=== PATIENT | female | born 1975 ===

== ENCOUNTER 2016-07-30 15:38 | Emergency (ER) | payer OTHER ==
[2016-07-30 15:43] VITALS: BMI 24.8
[2016-07-30 15:44] VITALS: TEMP 97.7
--- NOTE | 2016-07-30 16:30 | C.PDOC ---
History Of Present Illness 40 y/o female c/o tightness right posterior neck for 2 days. Patient states she developed gradual onset of a generalized headache today. Patient states she also felt some associated nausea. She has had mild nasal c ongestion and now has pressure type pain in her upper teeth. Denies fever, chills, recent illness , visual disturbances, or other associated symptoms. She took Sara-seltzer for the nausea but nothing for the headache. Patient states that she has a history of seizure disorder with her last seizure 9 years ago. She ran out of her seizure medication 3 days ago. Time Seen by Provider: 07/30/16 15:59 Chief Complaint (Nursing): Seizure History Per: Patient History/Exam Limitations: no limitations Onset/Duration Of Symptoms: Days (2) Current Symptoms Are (Timing): Still Present Recent travel outside of the [place]: No Past Medical History Reviewed: Historical Data, Nursing Documentation, Vital Signs Vital Signs: Last Vital Signs Temp 97.7 F 07/30/16 15:43 Pulse 74 07/30/16 15:43 Resp 18 07/30/16 15:43 BP 130/75 07/30/16 15:43 Pulse Ox 98 07/30/16 16:30 - Medical History PMH: Seizures Family History: States: Unknown Family Hx - Social History Hx Alcohol Use: No Hx Substance Use: No - Immunization History Hx Tetanus Toxoid Vaccination: Yes Hx Influenza Vaccination: Yes Hx Pneumococcal Vaccination: Yes Review Of Systems Except As Marked, All Systems Reviewed And Found Negative. Constitutional: Negative for: Fever, Chills Cardiovascular: Negative for: Chest Pain Respiratory: Negative for: Cough Gastrointestinal: Positive for: Nausea. Negative for: Vomiting Musculoskeletal: Positive for: Neck Pain Skin: Negative for: Rash Neurological: Positive for: Headache. Negative for: Weakness, Numbness Physical Exam - Physical Exam Appears: Non-toxic, No Acute Distress Skin: Normal Color, Warm, Dry Head: Atraumatic, Normacephalic Eye(s): bilateral: Normal Inspection, PERRL, EOMI Ear(s): Bilateral: Normal Nose: Other (Moderate congestion with bilateral maxillary sinus tenderness) Oral Mucosa: Moist Neck: Normal ROM, No Midline Cervical Tenderness, No Paracervical Tenderness, No Step Off Deformity, Supple Chest: Symmetrical Cardiovascular: Rhythm Regular Respiratory: Normal Breath Sounds, No Rales, No Rhonchi, No Wheezing Gastrointestinal/Abdominal: Soft, No Tenderness, No Guarding, No Rebound Back: Normal Inspection, No Vertebral Tenderness, No Paraspinal Tenderness Extremity: Normal ROM, Capillary Refill (< 2 sec. ) Neurological/Psych: Oriented x3, Normal Speech, Normal Cognition ED Course And Treatment - Laboratory Results Result Diagrams: 07/30/16 16:47 07/30/16 16:47 Lab Interpretation: Abnormal (Mild elevation of WBC with elevated eosinophils.) O2 Sat by Pulse Oximetry: 98 (RA) Pulse Ox Interpretation: Normal Progress Note: Treated with Flexeril, Toradol, and IVFs. Labs ordered and reviewed. Reevaluation Time: 17:42 Reassessment Condition: Improved (Feels better after IV Toradol and PO Flexeril) Disposition Counseled Patient/Family Regarding: Studies Performed, Diagnosis, Need For Followup, Rx Given - Disposition Referrals: [facility] [Outside] Disposition: HOME/ ROUTINE Disposition Time: 17:49 Condition: IMPROVED Prescriptions: Amoxicillin 875 mg PO BID #20 tablet Fluticasone Furoate [Flonase Sensimist] 15.8 ml NS DAILY #1 spray.susp Phenytoin, Extended [Dilantin] 100 mg PO TID #90 cer Instructions: Sinusitis (ED), Epilepsy (ED) Print Language: SAMI - Clinical Impression Clinical Impression: Seizure disorder, Sinusitis - Venkatibe Statement The provider has reviewed the documentation as recorded by the Jose Eduardo Rose Provider Attestation: All medical record entries made by the Jose Eduardo were at my direction and personally dictated by me. I have reviewed the chart and agree that the record accurately reflects my personal performance of the history, physical exam, medical decision making, and the department course for this patient. I have also personally directed, reviewed, and agree with the discharge instructions and disposition.
[2016-07-30 16:50] LABS: BASO # 0.1 K/uL (0.0-0.2); BASO % 0.7 % (0.0-2.0); EOS # 1.2 K/uL (0.0-0.7); HEMATOCRIT 43.7 % (34.0-47.0); LYMPH # 2.9 K/uL (1.0-4.3); LYMPH % 23.7 % (20.0-40.0); MEAN CELL VOLUME 86.6 fL (81.0-99.0); MEAN CORPUSCULAR HGB CONC 33.5 g/dL (33.0-37.0); MEAN PLATELET VOLUME 8.4 fL (7.2-11.7); MONO # 0.8 K/uL (0.0-0.8); MONO % 6.4 % (0.0-10.0); NRBC % 0.1 % (0.0-2.0); RED CELL DISTRIBUTION WIDTH 13.6 % (11.5-14.5); WHITE BLOOD COUNT 12.1 K/uL (4.8-10.8)
[2016-07-30 16:58] LABS: CHLORIDE 100 mmol/L (98-107); SODIUM 138 mmol/L (132-148)
[2016-07-30 17:00] LABS: GFR AFRICAN-AMERICAN > 60
[2016-07-30 17:01] LABS: ALB/GLOB RATIO 1.2 (1.0-2.1); ALKALINE PHOSPHATASE 57 U/L (38-126); ALT/SGPT 27 U/L (9-52); AST/SGOT 35 U/L (14-36); BLOOD UREA NITROGEN 10 mg/dL (7-17); CARBON DIOXIDE 25 mmol/L (22-30); GLUCOSE,RANDOM 98 mg/dL (65-105)
[2016-07-30 17:02] LABS: CALCIUM 8.3 mg/dl (8.6-10.4)
[2016-07-30 17:07] LABS: POTASSIUM 4.4 mmol/L (3.6-5.2)
[2016-07-30 17:09] LABS: RBC URINE < 1 /hpf (0-3); URINE BACTERIA RARE (<OCC); URINE BILIRUBIN NEGATIVE (NEGATIVE); URINE BLOOD NEGATIVE (NEGATIVE); URINE COLOR Colorless (YELLOW); URINE GLUCOSE (UA) NORMAL (Normal); URINE KETONE NEGATIVE (NEGATIVE); URINE PROTEIN NEGATIVE (NEGATIVE); URINE UROBILINOGEN NORMAL mg/dL (0.2-1.0); WBC URINE 1 /hpf (0-5)
[2016-07-30 17:14] LABS: URINE LEUKOCYTE ESTERASE NEGATIVE Leu/uL (Negative)
[2016-07-30 19:07] VITALS: BP 135/81; PULSE 80; RESP 20; O2SAT 100
== END 2016-07-30 19:06 | disposition home or self-care (01) ==
LOC: C.ER 15:38
DX: G40.909 Epilepsy, unspecified, not intractable, without status epilepticus (principal); J32.9 Chronic sinusitis, unspecified
CPT/HCPCS: 80053; 81001; 85025; 96374; 99285; J1885

== ENCOUNTER 2017-04-16 15:26 | Emergency (ER) | payer OTHER ==
[2017-04-16 15:26] VITALS: BMI 34.5
[2017-04-16 15:36] VITALS: RESP 18; TEMP 98
--- NOTE | 2017-04-16 16:13 | C.PDOC ---
History Of Present Illness 41 year old female sent to the ER by the clinic for a complaint of an intermittent left sided headache for the past 3 days, associated with photophobia and nausea. Patient denies vomiting, fever, or change in vision. Time Seen by Provider: 04/16/17 15:53 Chief Complaint (Nursing): Headache History Per: Patient History/Exam Limitations: no limitations Onset/Duration Of Symptoms: Days, Intermittent Episodes Current Symptoms Are (Timing): Still Present Preceeding Symptoms: None Associated Symptoms: Photophobia, Nausea. denies: Blurred Vision, Vomiting, Extremity Weakness Recent travel outside of the [place]: No Past Medical History Reviewed: Historical Data, Nursing Documentation, Vital Signs Vital Signs: Last Vital Signs Temp 98.0 F 04/16/17 15:31 Pulse 72 04/16/17 15:31 Resp 18 04/16/17 15:31 BP 124/75 04/16/17 15:31 Pulse Ox 99 04/16/17 16:18 - Medical History PMH: Seizures Family History: States: Unknown Family Hx - Social History Hx Alcohol Use: No Hx Substance Use: No - Immunization History Hx Tetanus Toxoid Vaccination: Yes Hx Influenza Vaccination: Yes Hx Pneumococcal Vaccination: Yes Review Of Systems Except As Marked, All Systems Reviewed And Found Negative. Constitutional: Negative for: Fever, Chills Gastrointestinal: Positive for: Nausea. Negative for: Vomiting Neurological: Positive for: Headache, Other (Photophobia) Physical Exam - Physical Exam Additional Physical Exam Comments: Constitutional: No acute distress. Head: Normocephalic. Atraumatic. Eyes: PERRL. ENT: Moist mucous membranes. Neck: Supple. Cardiovascular: Regular rate. Radial pulse 2+ bilaterally. Chest: No tenderness. Respiratory: Clear to auscultation bilaterally. GI: Soft. Nontender. Nondistended. Back: No CVA tenderness. Musculoskeletal: No tenderness or swelling of extremities. Skin: No rash. Neurologic: Alert, no focal deficit. CN II to XII intact. Motor 5/5 x 4. Sensation to light touch intact bilaterally. Gait normal. ED Course And Treatment O2 Sat by Pulse Oximetry: 99 Medical Decision Making Medical Decision Making: IMPRESSION: No acute intracranial pathology identified. Disposition - Disposition Referrals: [facility] [Outside] Disposition: HOME/ ROUTINE Disposition Time: 16:54 Condition: STABLE Prescriptions: Ibuprofen [Motrin] 600 mg PO Q6 #25 tab Metoclopramide [Reglan] 10 mg PO Q8H #12 tab Instructions: Headache, Adult (DC) Forms: [facility] (Setswana), Gen Discharge Inst Mohawk Print Language: [place] LEONEAN - Clinical Impression Clinical Impression: Headache - Scribe Statement The provider has reviewed the documentation as recorded by the Scribe Desmond Cruz All medical record entries made by the Venkatibe were at my direction and personally dictated by me. I have reviewed the chart and agree that the record accurately reflects my personal performance of the history, physical exam, medical decision making, and the department course for this patient. I have also personally directed, reviewed, and agree with the discharge instructions and disposition.
--- NOTE | 2017-04-16 16:52 | CT ---
PROCEDURE: CT HEAD WITHOUT CONTRAST. HISTORY: headache COMPARISON: Brain MRI without contrast performed 04/07/17 TECHNIQUE: Axial computed tomography images were obtained through the head/brain without intravenous contrast. Radiation dose: Total exam DLP = 801.12 mGy-cm. This CT exam was performed using one or more of the following dose reduction techniques: Automated exposure control, adjustment of the mA and/or kV according to patient size, and/or use of iterative reconstruction technique. FINDINGS: HEMORRHAGE: No intracranial hemorrhage. BRAIN: No mass effect or edema. The wellington-white matter differentiation appears intact. Please note that MRI with diffusion imaging is more sensitive in the detection of acute ischemic event. Low lying cerebellar tonsils. VENTRICLES: No hydrocephalus. CALVARIUM: Unremarkable. PARANASAL SINUSES: Unremarkable as visualized. No significant inflammatory changes. MASTOID AIR CELLS: Unremarkable as visualized. No inflammatory changes. OTHER FINDINGS: None. IMPRESSION: No acute intracranial pathology identified. Low-lying cerebellar tonsils.
[2017-04-16 17:07] VITALS: BP 124/58; PULSE 86; O2SAT 98
== END 2017-04-16 17:07 | disposition home or self-care (01) ==
LOC: C.ER 15:26
DX: R51 Headache (principal)

== ENCOUNTER 2017-06-28 12:03 | Emergency (ER) | payer OTHER ==
[2017-06-28 12:03] VITALS: BMI 34.5
--- NOTE | 2017-06-28 12:55 | C.PDOC ---
History Of Present Illness Patient reports that she developed a dry non-productive cough over the past 2 days. Patient report that the cough is associated with post-tussive emesis. denies fever, travel, decreased PO intake, diarrhea, hemoptysis, chest pain, SOB. Time Seen by Provider: 06/28/17 12:17 Chief Complaint (Nursing): Abdominal Pain History Per: Patient History/Exam Limitations: no limitations Current Symptoms Are (Timing): Still Present Severity: Mild Past Medical History Reviewed: Historical Data, Nursing Documentation, Vital Signs Vital Signs: Last Vital Signs Temp 98.2 F 06/28/17 14:25 Pulse 107 H 06/28/17 14:25 Resp 20 06/28/17 14:25 BP 119/75 06/28/17 14:25 Pulse Ox 97 06/28/17 15:35 - Medical History PMH: No Chronic Diseases, Seizures Family History: States: No Known Family Hx - Social History Hx Alcohol Use: No Hx Substance Use: No - Immunization History Hx Tetanus Toxoid Vaccination: Yes Hx Influenza Vaccination: Yes Hx Pneumococcal Vaccination: Yes Review Of Systems Except As Marked, All Systems Reviewed And Found Negative. Physical Exam - Physical Exam Appears: Non-toxic, No Acute Distress Skin: Normal Color, Warm, No Rash Head: Atraumatic, Normacephalic Eye(s): bilateral: Normal Inspection Ear(s): Bilateral: Normal Oral Mucosa: Moist Throat: No Erythema, No Exudate Neck: Normal ROM, Supple Chest: Symmetrical, No Tenderness Cardiovascular: Rhythm Regular, No Friction Rub, No Murmur Respiratory: No Accessory Muscle Use, No Rales, Rhonchi (scattered), No Stridor , No Wheezing Gastrointestinal/Abdominal: Bowel Sounds (active), Soft, No Tenderness Extremity: Normal ROM, No Swelling Neurological/Psych: Oriented x3, Normal Speech, Normal Motor Gait: Steady ED Course And Treatment O2 Sat by Pulse Oximetry: 97 (on RA) Pulse Ox Interpretation: Normal - Radiology CXR: Interpreted by Me CXR Interpretation: Yes: No Acute Disease. No: Infiltrates Medical Decision Making Medical Decision Making: On re-exam, the patient reports improvement of symptoms. Lungs are CTA, heart is RRR, abdomen is soft, non-tender and tolerating PO well. Ambulatory in the ED with steady gait. follow up with the medical doctor within 1-2 days. Return if worsened. Disposition - Disposition Referrals: [facility] [Outside] Disposition: HOME/ ROUTINE Disposition Time: 14:14 Condition: GOOD Additional Instructions: follow up with the medical doctor within 1-2 days. Return if worsened. Prescriptions: Albuterol Sulfate [Ventolin Hfa] 1 puff IH Q6 PRN #100 puff PRN Reason: Shortness Of Breath Benzonatate [Tessalon Perles] 100 mg PO TID PRN #21 sgl PRN Reason: Cough Ibuprofen [Motrin] 1 tab PO TID PRN #30 tab PRN Reason: Pain Loratadine [Claritin] 10 mg PO DAILY #10 tab predniSONE [Prednisone] 20 mg PO BID #10 tab Spacer, Inhalation [Aerochamber] 1 dev IH Q4 #1 dev Instructions: Acute Bronchitis Forms: [facility] (Liberian) Print Language: GABONESE - Clinical Impression Clinical Impression: Bronchitis
[2017-06-28] MEDS: Albuterol-Ipratrop 3 mg / 0.5 (3 ml) UD IH SCH (13:16)
--- NOTE | 2017-06-28 14:25 | RAD ---
HISTORY: cough, rhonchi COMPARISON: No prior. TECHNIQUE: Chest PA and lateral FINDINGS: LUNGS: Poor inspiration with low lung volumes, crowded bronchovascular markings and mild bibasilar atelectasis. The interstitial markings are also slightly coarsened and increased with a few scattered peribronchial cuffing changes. Rule out sequela of reactive/inflammatory airway disease or viral illness. PLEURA: No significant pleural effusion identified. No pneumothorax apparent. CARDIOVASCULAR: Normal. OSSEOUS STRUCTURES: No significant abnormalities. VISUALIZED UPPER ABDOMEN: Normal. OTHER FINDINGS: None. IMPRESSION: Poor inspiration with low lung volumes, crowded bronchovascular markings and mild bibasilar atelectasis The interstitial markings are also slightly coarsened and increased with a few scattered peribronchial cuffing changes. Rule out sequela of reactive/inflammatory airway disease or viral illness.
[2017-06-28 14:26] VITALS: BP 119/75; PULSE 107; RESP 20; TEMP 98.2
[2017-06-28 15:36] VITALS: O2SAT 97
== END 2017-06-28 14:32 | disposition home or self-care (01) ==
LOC: C.ER 12:03
DX: J40 Bronchitis, not specified as acute or chronic (principal)

== ENCOUNTER 2018-04-29 09:24 | Outpatient (CLI) | payer SELFPAY | END 2018-04-29 09:25 | disposition home or self-care (01) | LOC: C.MAMMO 09:24 | DX: N64.4 Mastodynia (principal) ==

== ENCOUNTER 2018-07-06 12:38 | Outpatient (CLI) | payer SELFPAY | END 2018-07-06 12:39 | disposition home or self-care (01) | LOC: C.MRIC 12:39 ==